=== PATIENT | female | born 2000 | race Hispanic/Latino ===

== ENCOUNTER 2022-06-15 23:45 | Emergency (ER) | payer BC, OTHER ==
[2022-06-16 00:18] LABS: Hemoglobin 14.9 g/dL (12.0-16.0); Mean Corpuscular HGB CONC 36.3 g/dL (32.0-36.0); Mean Corpuscular Hemoglobin 32.5 pg (25.0-35.0); Mean Corpuscular Volume 89.4 fL (78.0-98.0); RBC Distribution Width 11.8 % (11.5-14.5); White Blood Cell (WBC) Count 12.2 thou/uL (4.8-10.8)
[2022-06-16 00:19] LABS: #Basophils 0.2 thou/uL (0.0-0.2); #Eosinphils 1.3 thou/uL (0.0-0.7); #Lymphocytes 5.1 thou/uL (1.20-3.40); #Monocytes 0.5 thou/uL (0.11-0.59); #Neutrophils 5.2 thou/uL (1.40-6.50); %Basophils 1.5 % (0.0-1.0); %Eosinophils 10.2 % (0.0-10.0); %Lymphocytes 41.4 % (28.0-48.0); %Monocytes 4.3 % (0.0-4.0); %Neutrophils 42.6 % (31.0-61.0)
[2022-06-16] MEDS ORDERED: Ondansetron PF 4 MG/2 ML Vial ONE (00:21)
[2022-06-16 00:22] LABS: BHCG - Serum Negative (NEGATIVE); Pregs Control Background? CLEAR/WHITE (CLR/WHITE); Pregs Control Bar Appear? YES (CONTROL BAR)
[2022-06-16] MEDS ORDERED: Albuterol Sulfate 2.5 mg/3 ml Neb ONE (00:32)
[2022-06-16 00:34] LABS: Large Platelets SLIGHT; MDiff Complete? YES; Mean Platelet Volume 11.3 fL (7.4-10.4); Platelet Count 156 thou/uL (130-400); Platelet Morphology Comment Appears Adequate
[2022-06-16 00:35] LABS: ALT (SGPT) 55 U/L (8-55); AST (SGOT) 28 U/L (5-34); Albumin 4.7 g/dL (3.5-5.0); Alkaline Phosphatase 82 U/L (40-100); Anion Gap 14 mmol/L (10-20); BUN (Urea Nitrogen) 11 mg/dL (7.0-18.7); Bilirubin, Total 0.3 mg/dL (0.2-1.2); Calc. Creatinine Clearance 0 mL/min (70-130); Calcium 10.1 mg/dL (7.8-10.44); Carbon Dioxide 23 mmol/L (22-29); Chloride 103 mmol/L (98-107); Estimated GFR 113; Globulin 3.8 g/dL (2.4-3.5); Glucose 104 mg/dL (70-105); Potassium 3.3 mmol/L (3.5-5.1); Protein, Total 8.5 g/dL (6.0-8.3); Sodium 137 mmol/L (136-145)
== END 2022-06-16 01:54 | disposition home or self-care (01) ==
LOC: ERS 23:45
DX: J98.01 Acute bronchospasm (principal)
CPT/HCPCS: 71045; 80053; 84703; 85025; 93005; 96374; J2405; J7611; J7620